=== PATIENT | female | born 1975 | race Caucasian/White ===

== ENCOUNTER 2016-10-19 06:27 | Day surgery (SDC) | payer OTHER ==
[~2016-10-19] VITALS: Ht 160 cm; Wt 64.4 kg
[~2016-10-19 06:27] MED LIST: ADDERALL15 MG PO; ASPIR-LOW81 MG PO; CLARITIN,ALAVAR10 MG PO; DIFLUCAN150 MG PO; FIORICET 50-301 EACH PO; METRONIDAZOLE500 MG PO; MIRENA1 EACH IY; TYLENOL EXTRA500 MG PO; TYLENOL REGULA325 MG PO; VALTREX1000 MG PO; XANAX0.5 MG PO; ZOVIRAX800 M1 PO
[2016-10-19 07:25] VITALS: BP 119/80
[2016-10-19] MEDS ORDERED: HYDROCODON-ACE1 EAC7 PO (10:00)
[2016-10-19] MEDS ORDERED: COLACE100 MG PO (10:00)
[2016-10-19] MEDS ORDERED: PROMETHAZINE HC50 M1 PO (10:07)
[2016-10-19 10:44] VITALS: BP 129/82
[2016-10-19 11:45] VITALS: BP 126/79
== END 2016-10-19 12:04 | disposition home or self-care (01) ==
LOC: SDC 06:27
DX: K64.4 Residual hemorrhoidal skin tags (principal); K60.0 Acute anal fissure; K59.4 Anal spasm; K62.0 Anal polyp
CPT/HCPCS: 88304; J0131; J0690; J1100; J1170; J1885; J2250; J2405; J2710; J3010; S0020